=== PATIENT | female | born 1965 | race Hispanic/Latino ===

== ENCOUNTER → 2020-08-01 | Day surgery (SDC) | payer BC ==
[2020-07-28 15:33] LABS: BASOPHILS % 0.4 % (0.0-1.0); EOSINOPHILS % 0.6 % (0.0-6.0); HEMATOCRIT 37.7 % (34.2-44.1); LYMPHOCYTES # (AUTO) 2.5 (1.0-3.2); LYMPHOCYTES % 35.9 % (18.0-39.1); MEAN CORPUSCULAR HEMOGLOBIN 28.4 pg (28-32); MEAN CORPUSCULAR HGB CONC 31.8 g/dL (31-35); MEAN CORPUSCULAR VOLUME 89.1 fL (81-99); MONOCYTES # (AUTO) 0.6 (0.2-0.8); MONOCYTES % 8.3 % (4.4-11.3); NEUTROPHILS # (AUTO) 3.8 (2.1-6.9); NEUTROPHILS % 54.5 % (38.7-80.0); PLATELET COUNT 295 x10e3/uL (140-360); RED BLOOD COUNT 4.23 x10e6/uL (3.6-5.1); RED CELL DISTRIBUTION WIDTH 14.1 % (11.7-14.4)
[~2020-08-01] MED LIST: CEFAZOLIN SOD 1 GM/NS 50ML 50 ML IV ONE; DEXAMETHASONE SOD PHOS INJ 4 MG/ML VIAL ONE; ELIQUIS5 MG PO; FENTANYL CITRATE/PF 100MCG/2 ML INJ ONE; KETOROLAC TROMETHAMINE 30 MG/ML VIAL ONE; LIDOCAINE HCL 2% LOCAL INJ 5 ML SDV VIAL INJ ONE; METOPROLOL SUCC50 MG PO; MIDAZOLAM HCL 2 MG/2 ML VIAL ONE; ONDANSETRON HCL INJ 2MG/ML 2ML 2 MG/ML VIAL ONE; PANTOPRAZOLE SO40 MG PO; PRAVASTATIN SOD20 MG PO; PROPOFOL IV EMULSION 10 MG/ML 20 ML VIAL ONE; SEVOFLURANE INHAL SOLN 250 ML PEN BTL ONE; VASOTEC5 MG PO
[2020-08-01 09:15] VITALS: BP 125/81
--- NOTE | 2020-08-01 10:24 | Operative Report ---
DATE OF PROCEDURE: 08/01/2020 SURGEON: Rio Stroud MD MECHANICAL ARTIST: Norbert Pat, certified PA. PREOPERATIVE DIAGNOSIS: Left knee lateral meniscal tear. 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 PROCEDURE: Left knee arthroscopy, partial lateral meniscectomy, chondroplasty of the patellofemoral joint, lateral femoral condyle. INDICATIONS: The patient is a 54-year-old lady who has long-standing left knee pain. Clinic exam and MRI findings were consistent with early arthritic changes and degenerative lateral meniscal tear. The findings and options have been discussed with the patient. She feels that she has failed conservative management and would like to proceed with arthroscopic intervention. The risks and benefits of the procedure have been explained. Realistic expectations have been repeatedly stressed. All of her questions have been answered. She states she understands and wishes to proceed. PROCEDURE IN DETAIL: The patient was brought to the operating room and placed under general anesthetic. Her left lower extremity was prepped and draped in a sterile manner. She received prophylactic antibiotics in the holding area. A preoperative time-out was performed. The extremity had been exsanguinated and a proximal tourniquet was inflated to 300 mmHg. Standard arthroscopy portals were established. The knee was insufflated with sterile saline and systematically inspected. Immediately evident was some grade 3 and even grade 4 changes of chondromalacia in the patellofemoral groove. The medial compartment was inspected and probed. This was unremarkable. There was no evidence of a meniscal tear and the articular surfaces were well preserved. The cruciate ligaments were unremarkable. There was extensive degenerative tearing of the anterior horn and midportion of the lateral meniscus. There was associated grade 3 to grade 4 chondromalacia of the lateral femoral condyle. A meniscal shaver and biting forceps were used to debride the meniscus back to a stable margin. Once stable areas of the chondral wear on the lateral femoral condyle were also debrided back to stable margins. Before and after photographs were taken. The meniscal shaver was then used to perform gentle chondroplasty of the undersurface of the patella and the trochlear groove. We removed all unstable margins. Once again, before and after photographs were taken. The knee was then thoroughly irrigated. The arthroscopic instruments were removed and the portal incisions were closed with nylon stitches. A sterile bandage was applied. There was no blood loss and all needle and sponge counts were correct. Rio Stroud MD DR/LORE /[id number]
== END | disposition home or self-care (01) ==
LOC: OR 05:42
PROVIDERS: ATTEND Specialist
DX: S83.272A Complex tear of lateral meniscus, current injury, left knee, initial encounter (principal); M22.42 Chondromalacia patellae, left knee; I82.4Z2 Acute embolism and thrombosis of unspecified deep veins of left distal lower extremity; R06.83 Snoring; I10 Essential (primary) hypertension; K21.9 Gastro-esophageal reflux disease without esophagitis; F41.9 Anxiety disorder, unspecified; X58.XXXA Exposure to other specified factors, initial encounter; Z01.810 Encounter for preprocedural cardiovascular examination; Z01.812 Encounter for preprocedural laboratory examination; Z11.59 Encounter for screening for other viral diseases; Z79.02 Long term (current) use of antithrombotics/antiplatelets; Z68.33 Body mass index [BMI] 33.0-33.9, adult
CPT/HCPCS: 29881; 36415; 85025; 93005; J0690; J1100; J1885; J2001; J2250; J2405; J2704; J3010; U0002